=== PATIENT | male | born 1945 | race Caucasian/White ===

== ENCOUNTER 2019-04-17 07:39 | Inpatient (IN) | payer MEDICARE ==
[~2019-04-17 07:39] MED LIST: Dexamethasone TAB* 4 MG PO ONE; DiMENhydriNATE IV* 50 MG/ML VIAL IV PUSH PRN; Famotidine IV* 10 MG/ML 2 ML (20 mg) IV ONE; HYDROmorphone INJ1* 1 MG/ML SYRINGE IV PRN; Lactated Ringers 1000 ML Bag* 1,000 ML IV SCH; Naloxone* 0.4 MG/ML 1 ML VIAL IV PRN; Ondansetron ODT TAB* 4 MG PO ONE; PROCHLORPERAZINE INJ 5 MG/ML 2 ML VIAL IV PRN; Vancomycin(*) 1,750 MG in NS 0.9% 500 ML* 500 ML IVPB ONE; fentaNYL* 50 MCG/ML 2 ML VIAL (100 MCG VIAL) IV PRN; oxyCODONE TAB* 5 MG TAB PO PRN
[2019-04-17] MEDS ORDERED: KETAMINE HCL* 50 MG/ML 10 ML VIAL ONE (08:26)
[2019-04-17] MEDS ORDERED: Midazolam* 1 MG/ML 10 ML VIAL (10 MG) ONE (08:26)
[2019-04-17] MEDS ORDERED: fentaNYL* 50 MCG/ML 2 ML VIAL (100 MCG VIAL) ONE (08:26)
[2019-04-17] MEDS ORDERED: Ondansetron ODT TAB* 4 MG ONE (08:33)
[2019-04-17] MEDS ORDERED: Dexamethasone IV* 4 MG/ML 1 ML (4 MG) ONE (08:33)
[2019-04-17] MEDS ORDERED: Famotidine IV* 10 MG/ML 2 ML (20 mg) ONE (08:33)
[2019-04-17] MEDS ORDERED: Dexamethasone TAB* 4 MG ONE (08:45)
[2019-04-17] MEDS ORDERED: Buffered Lidocaine 1% SYRIN* 1 ML/SYRINGE INTRADERM ONE (09:13)
[2019-04-17] MEDS ORDERED: Ketorolac INJ* 30 MG/ML 1 ML VIAL ONE (12:05)
[2019-04-17] MEDS ORDERED: Lidocaine 2% PF * 5 ML VIAL ONE (12:05)
[2019-04-17] MEDS ORDERED: Bupivacaine 0.5% SDV PF* 30ML VIAL ONE (12:05)
[2019-04-17] MEDS ORDERED: Propofol* 10 MG/ML 20 ML BTL ONE ×2 (12:05→12:40)
[2019-04-17] MEDS ORDERED: Acetaminophen IV 1GM/100ML * 100 ML ONE (12:05)
[2019-04-17] MEDS ORDERED: Bupivacaine 0.5%* 50 ML MDV VIAL ONE (12:45)
[2019-04-17] MEDS ORDERED: Ondansetron ODT TAB* 4 MG PO PRN (13:31)
[2019-04-17] MEDS ORDERED: diPHENhydraMINE IV* 50 MG/ML 1 ml VIAL (BENADRYL) IV PRN (13:31)
[2019-04-17] MEDS ORDERED: diPHENhydraMINE PO* 25 MG PO PRN (13:31)
[2019-04-17] MEDS ORDERED: Ondansetron INJ* 2 MG/ML VIAL IV PRN (13:31)
[2019-04-17] MEDS ORDERED: oxyCODONE TAB* 5 MG TAB PO PRN (13:31)
[2019-04-17] MEDS ORDERED: Cyclobenzaprine TAB* 10 MG PO PRN (13:31)
[2019-04-17] MEDS ORDERED: Magnesium Hydroxide LIQ* 30 ML UDC PO PRN (13:31)
[2019-04-17] MEDS ORDERED: Morphine INJ* 2 MG/ML 1 ML SYRINGE (TWO MG - NEW SYRINGE VERSION) IV PRN (13:37)
[2019-04-17] MEDS ORDERED: Temazepam CAP* 15 MG PO PRN (13:37)
--- NOTE | 2019-04-17 13:54 | OP ---
Operative Report - Blank - Operative Report Date of Operation: 04/17/19 Note: PATIENT: Isaias Mary DATE OF : 1945 DATE OF SURGERY: 04/17/2019 SURGEON: Moiz Fenton MD CHANGE DIRECTOR: ZION Orozco, whos assistance was necessary for positioning, retraction, help with instrumentation, and closure. ANESTHESIOLOGIST: Dr. 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 INDICATIONS FOR PROCEDURE: Isaias has right ankle and hindfoot pain. He has developed valgus ankle arthritis in the setting of posterior tibial tendon dysfunction. His main pain generator appeared to be his ankle joint so we elected to address this, although we did discuss addressing the hindfoot as well. Both operative and non-operative treatment alternatives were reviewed. Further, the nature and risks of surgery were reviewed in careful detail. Our discussions regarding the risks of surgery included, but were not limited to, infection, wound problems, nerve injury, neuroma, RSD, persistent symptoms, blood clot, nonunion, malunion, adjacent joint arthritis, need for further surgery, failure of the surgery, and even the remote chance of catastrophic complication. DESCRIPTION OF PROCEDURE: The patient was seen in the preoperative holding unit and informed written consent was obtained. The appropriate extremity was marked. The patient was then brought to the operating room and carefully positioned on the operating room table. Anesthesia was induced. All bony prominences were padded with great care. A well-padded thigh tourniquet was placed. A chlorhexidine based pre- scrub was performed followed by a chloraprep prep and drape in standard sterile fashion. A surgical safety pause was then conducted in which we confirmed the appropriate patient, extremity, planned procedure, availability of equipment, indication and administration of prophylactic antibiotics, and DVT prophylaxis in the form of a compression boot on the non-surgical extremity. I began with an Esmarch exsanguination of the limb and inflated the tourniquet. An anterior approach was used to gain access to the ankle joint. This was between the tibialis anterior and the extensor hallucis longus tendon. Great care was taken to protect the neurovascular bundle. After this had been done, the joint capsule was opened and the periosteum was taken with it. There was advanced degenerative change of the joint laterally. Osteophytes were excised. Laminar spreaders were placed in the joint and a combination of a scalpel and curettes were used to remove any remaining cartilage from the joint surfaces. I then prepared the tibial plafond and talar dome for fusion. This was performed with a kasia and osteotomes. The joint was then thoroughly irrigated to remove any remaining debris. I then turned my attention to the lateral tibial plateau. An incision was made over Gerdy's tubercle and I carefully dissected down to the lateral aspect of the proximal tibia. I then windowed the cortex of the tibia and used a curette to extract cancellous bone graft. Demineralized bone matrix was packed into the posterior aspect of the ankle joint. The autograft was then packed into the ankle joint fusion site. The ankle was then placed in a neutral position and 2 guidewires for 6.7 mm screws were advanced from the medial metaphysis across the joint line into the the talus. This was imaged to ensure satisfactory positioning. Two 6.7 mm partially threaded screws were then advanced from over the first pin and achieved excellent purchase and compression of the joint. An anterior fusion plate from the Arthrex system was then placed in position and held using a wire. This was imaged for position. Locking screws were placed through the distal plate into the talus. A compression screw was then placed in the oblong hole of the fusion plate and further compression was obtained. Two more nonlocking screws are placed proximally and one locking screw. Fluoroscopy was used throughout the case to assist in reduction and placement of the hardware. At the end of the case, final fluoroscopic images were obtained. The wounds were copiously irrigated and meticulously closed in layers utilizing 3-0 Monocryl and 3-0 nylon for the skin. A sterile dressing was then applied followed by a well-padded splint. The patient was then awakened from anesthesia and transferred to the recovery room in stable condition. There were no complications. All needle and sponge counts were correct at the end of the case. ATTESTATION: I attest I was present and scrubbed and performed the critical portions of the procedure myself. POSTOPERATIVE PLAN: The plan is for nonweightbearing for anticipated duration of 8 weeks. Follow-up will be in 2 weeks for likely suture removal, x-rays, and transition to a short-leg nonweightbearing cast. We will use aspirin for DVT prophylaxis.
[2019-04-17] MEDS: Lactated Ringers 1000 ML Bag* 1,000 ML IV SCH (15:00)
[2019-04-17] MEDS: Atorvastatin* 10 MG TAB PO SCH (17:11)
[2019-04-17] MEDS: Aspirin TAB* 325 MG PO SCH (17:11)
[2019-04-17] MEDS ORDERED: Ketorolac INJ* 30 MG/ML 1 ML VIAL IV PRN (18:30)
[2019-04-17] MEDS ORDERED: Vancomycin(*) 1,000 MG in NS 0.9% 250 ML* 250 ML IVPB ONE (20:00)
[2019-04-17] MEDS: Magnesium Hydroxide LIQ* 30 ML UDC PO SCH (21:48)
[2019-04-17] MEDS: Docusate CAP* 100 MG PO SCH (21:48)
[2019-04-17] MEDS: Acetaminophen TAB* 325 MG PO SCH (21:48)
[2019-04-18] MEDS: Lactated Ringers 1000 ML Bag* 1,000 ML IV SCH (04:22)
[2019-04-18 05:10] LABS: Hematocrit 37 % (42-52); Hemoglobin 12.9 g/dL (14.0-18.0); Platelet Count 180 10^3/uL (150-450)
[2019-04-18 05:31] LABS: BUN/Creatinine Ratio 20.4 (8-20); Calcium 8.8 mg/dL (8.6-10.3); EGFR African American 85.9 (>60); Potassium 4.3 mmol/L (3.5-5.0)
[2019-04-18] MEDS: Acetaminophen TAB* 325 MG PO SCH ×3 (06:20→21:49)
[2019-04-18] MEDS: Levothyroxine TAB* 50 MCG TAB PO SCH (06:20)
[2019-04-18] MEDS ORDERED: Vancomycin(*) 1,000 MG in NS 0.9% 250 ML* 250 ML IV ONE (08:00)
[2019-04-18] MEDS: Vitamin THERAPEUTIC TAB PO SCH (08:55)
[2019-04-18] MEDS: Magnesium Hydroxide LIQ* 30 ML UDC PO SCH ×2 (08:56→21:48)
[2019-04-18] MEDS: Docusate CAP* 100 MG PO SCH ×2 (08:56→21:51)
[2019-04-18] MEDS: Aspirin TAB* 325 MG PO SCH (08:56)
--- NOTE | 2019-04-18 11:05 | PN ---
Progress Note - Progress Note Date of Service: 04/18/19 SOAP: Subjective: [Pt was seen in bed this am. States that he is doing well. . He states that he is starting to feel pain in the lateral portion of the ankle this morning as maybe the block is starting to wear off. The pt denies any chest pain, SOB, nausea or vomiting. ] Objective: [General: pt is alert and oriented x3. NAD MSK, RLE: dressing is c/d/i. Splint in place. Toes exposed. He states that he continues to feel numbness of the toes from the block yesterday. He has 2+ Cap refill in all toes. 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
[2019-04-18] MEDS: oxyCODONE TAB* 5 MG TAB PO PRN ×2 (11:35→19:19)
[2019-04-18] MEDS: Atorvastatin* 10 MG TAB PO SCH (16:26)
[2019-04-19] MEDS: oxyCODONE TAB* 5 MG TAB PO PRN ×3 (03:48→18:29)
[2019-04-19] MEDS: Levothyroxine TAB* 50 MCG TAB PO SCH (06:07)
[2019-04-19] MEDS: Acetaminophen TAB* 325 MG PO SCH ×3 (06:07→22:53)
[2019-04-19 07:10] LABS: Hematocrit 35 % (42-52); Hemoglobin 12.1 g/dL (14.0-18.0); Platelet Count 165 10^3/uL (150-450)
--- NOTE | 2019-04-19 08:35 | PN ---
Progress Note - Progress Note Date of Service: 04/19/19 SOAP: Subjective: Pt is doing well. pain is controlled. Denies F/C, CP/SOB or calf pain. Objective: PE- 73 y/o WDWN M NAD RLE- spilt c/d/i, knee NT, able to f/e toes, SILT distally, brisk cap refill Vital Signs Temp Pulse Resp BP Pulse Ox 98.8 F 67 16 131/81 98 04/19/19 07:44 04/19/19 07:44 04/19/19 07:44 04/19/19 07:44 04/19/19 07:44 Laboratory Results - last 24 hr 04/19/19 06:24 Hgb 12.1 L Hct 35 L Plt Count 165 MPV 7.0 L Assessment: [POD 2 Right ankle arthrodesis with tibial bone graft Plan: [- NWB - ASA 325 for DVT prophylaxis - remain in splint - pain medication as needed - awaiting rehab placement.
[2019-04-19] MEDS: Docusate CAP* 100 MG PO SCH ×2 (09:33→22:28)
[2019-04-19] MEDS: Magnesium Hydroxide LIQ* 30 ML UDC PO SCH ×2 (09:33→22:28)
[2019-04-19] MEDS: Aspirin TAB* 325 MG PO SCH (09:33)
[2019-04-19] MEDS: Vitamin THERAPEUTIC TAB PO SCH (09:34)
[2019-04-19] MEDS ORDERED: Bisacodyl SUPP* 10 MG SUPP PR PRN (13:31)
[2019-04-19] MEDS: Atorvastatin* 10 MG TAB PO SCH (18:24)
[2019-04-20 05:11] LABS: Hematocrit 37 % (42-52); Hemoglobin 12.9 g/dL (14.0-18.0); Mean Platelet Volume 6.8 fL (7.4-10.4); Platelet Count 163 10^3/uL (150-450)
[2019-04-20] MEDS: Acetaminophen TAB* 325 MG PO SCH ×3 (05:52→21:26)
[2019-04-20] MEDS: Levothyroxine TAB* 50 MCG TAB PO SCH (05:52)
[2019-04-20] MEDS: Magnesium Hydroxide LIQ* 30 ML UDC PO SCH ×2 (08:38→21:16)
[2019-04-20] MEDS: Docusate CAP* 100 MG PO SCH ×2 (08:38→21:30)
[2019-04-20] MEDS: Aspirin TAB* 325 MG PO SCH (08:40)
[2019-04-20] MEDS: Vitamin THERAPEUTIC TAB PO SCH (08:40)
--- NOTE | 2019-04-20 10:03 | PN ---
Progress Note - Progress Note Date of Service: 04/20/19 SOAP: Subjective: Pt is doing well. Pain is controlled. Denies N/T, F/C, Cp/SOB or calf pain Objective: PE- 73 y/o WDWN M NAD RLE- splint c/d/i, knee NT, able to F/E toes, brisk cap refill Vital Signs Temp Pulse Resp BP Pulse Ox 97.7 F 78 18 154/90 96 04/20/19 07:33 04/20/19 07:33 04/20/19 08:00 04/20/19 07:33 04/20/19 08:00 Laboratory Results - last 24 hr 04/20/19 04:59 Hgb 12.9 L Hct 37 L Plt Count 163 MPV 6.8 L Assessment: [POD 2 Right ankle arthrodesis with tibial bone graft Plan: [- NWB - ASA 325 for DVT prophylaxis - remain in splint - pain medication as needed - awaiting rehab placement Plan DC to [facility] vs SNF tomorrow
[2019-04-20 11:18] LABS: ABS Eosinophils 0.5 10^3/ul (0-0.6); ABS Lymphocytes 1.2 10^3/ul (1.0-4.8); ABS Monocytes 0.9 10^3/ul (0-0.8); ABS Neutrophils 4.2 10^3/ul (1.5-7.7); Eosinophil % 7.4 %; Hematocrit 37 % (42-52); Hemoglobin 12.9 g/dL (14.0-18.0); Lymphocyte % 17.5 %; Mean Corpuscular HGB Conc 35 g/dL (31-36); Mean Corpuscular Hemoglobin 32 pg (27-31); Mean Corpuscular Volume 92 fL (80-94); Mean Platelet Volume 6.6 fL (7.4-10.4); Platelet Count 173 10^3/uL (150-450); Red Blood Count 4.01 10^6 /uL (4.18-5.48); Red Cell Distribution Width 14 % (10-15); White Blood Count 6.9 10^3/uL (3.5-10.8)
[2019-04-20 11:33] LABS: BUN/Creatinine Ratio 14.1 (8-20); Calcium 8.8 mg/dL (8.6-10.3); EGFR African American 89.9 (>60); EGFR Non-African American 74.3 (>60); Potassium 4.1 mmol/L (3.5-5.0)
[2019-04-20] MEDS: Atorvastatin* 10 MG TAB PO SCH (17:16)
[2019-04-20] MEDS: oxyCODONE TAB* 5 MG TAB PO PRN (19:27)
[2019-04-21 05:21] LABS: Hematocrit 38 % (42-52); Hemoglobin 13.1 g/dL (14.0-18.0); Mean Platelet Volume 6.7 fL (7.4-10.4); Platelet Count 184 10^3/uL (150-450)
[2019-04-21] MEDS: Levothyroxine TAB* 50 MCG TAB PO SCH (05:26)
[2019-04-21] MEDS: Acetaminophen TAB* 325 MG PO SCH (05:27)
[2019-04-21] MEDS: Aspirin TAB* 325 MG PO SCH (08:06)
[2019-04-21] MEDS: Vitamin THERAPEUTIC TAB PO SCH (08:06)
[2019-04-21] MEDS: Docusate CAP* 100 MG PO SCH (08:07)
--- NOTE | 2019-04-21 11:16 | DS ---
Orthopedic Discharge Summary - Discharge Summary Date of Admission:04/18/19 Date of Discharge: 04/21/2019 Date of Surgery: 04/18/2019 Attending Orthopedic Provider: Dr. 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 Patient has failed conservative management and has elected to undergo a right ankle arthrodesis with tibial bone graft. Hospital Course: ZAN was admitted to [facility] on 04/18/19. Patient underwent a right ankle arthrodesis with tibial bone graft without complication followed by a brief recovery in PACU and transfer to the Short Stay Surgical Unit in stable condition. Physical therapy and occupational therapy also participated in this patients care. Post-op day 1: patient was alert and in no acute distress. Dressing was clean, dry and intact. Splint in place. He has 2+ Cap refill in all toes.Post-op day two: Splint remained in place. POD 3 Patient was deemed to be medically and orthopedically stable for discharge. Physical therapy goals were met. Home Medications Medication Instructions Recorded Confirmed Type Levothyroxine Sodium 50 mcg PO QAM 12/04/18 04/17/19 History Atorvastatin* 10 mg PO QPM 03/31/19 04/17/19 History Nonweight bearing right lower extremity Keep splint clean dry and intact until the patients post op visit Eat a diet high in fiber with a lot of water to prevent constipation If you develop constipation ok to use colace 100 mg 1 tab every 8 hours as needed If you do not have a bowel movement in 48 hours contact the ortho office. If you develop chest pain , shortness of breath, fever more than 101.5 or increase redness of the leg go to the ER right away Aspirin 325 mg take 1 tab daily for DVT prophylaxis x 6 weeks Ok to take tylenol 500 mg 2 tabs every 8 hours as needed for pain. Do not exceed 4000mg of tylenol(acetaminophen) a day. Oxycodone 5 mg take 1 tab every 4-6 hours as needed for pain in addition to tylenol. Maximum daily dose of 6. If you have any question or concerns you can contact the ortho office and F/U with Dr. Fenton 12-14 days post op
[2019-04-21] MEDS: oxyCODONE TAB* 5 MG TAB PO PRN (13:01)
[2019-04-21 13:04] VITALS: BP 152/89
== END 2019-04-21 13:20 | DRG 494 ==
LOC: OR 07:39 → SSU 12:55 → OBSVTOIN 17:00 → INTOOBSV 04-18 12:55
PROVIDERS: ADMIT Orthopaedic Surgery; ATTEND Orthopaedic Surgery
PROC: 0SGF07Z Fusion of Right Ankle Joint with Autologous Tissue Substitute, Open Approach (ICD-10-PCS; principal; 2019-04-17 09:45)
DX: M19.071 Primary osteoarthritis, right ankle and foot (principal); E78.00 Pure hypercholesterolemia, unspecified; E89.0 Postprocedural hypothyroidism; M21.071 Valgus deformity, not elsewhere classified, right ankle; M25.771 Osteophyte, right ankle; Z96.652 Presence of left artificial knee joint; R19.7 Diarrhea, unspecified; Z82.3 Family history of stroke; Z88.1 Allergy status to other antibiotic agents; Z88.8 Allergy status to other drugs, medicaments and biological substances; Z85.828 Personal history of other malignant neoplasm of skin; Z87.890 Personal history of sex reassignment; Z87.891 Personal history of nicotine dependence; Z79.82 Long term (current) use of aspirin; Z79.899 Other long term (current) drug therapy
CPT/HCPCS: 36415; 76000; 80048; 85014; 85018; 85025; 85049; 87493; A9270-GY; C1713; C9359; G0378; J1100; J1885; J2250; J2704; J3010; J3370; J3490; J8540

== ENCOUNTER 2019-06-29 12:49 | Observation (INO) | payer MEDICARE ==
--- OUTSIDE RECORDS SUMMARY | 2019-06-29 12:55 | XMS REPORT ---
:1945 Author Organization [facility] Care Team Providers Name Role Phone Unavailable Unavailable Unavailable Problems This patient has no known problems. Allergies, Adverse Reactions, Alerts Allergy Allergy Status Severity Reaction(s) Onset Inactive Treating Comments Name Type Date Date Clinician Unknown None Active Unknown None Unknown No Known Allergies For This Patient Medications Ordered Filled Start Stop Current Ordering Indication Dosage Frequency Signature Comments Components Medication Medication Date Date Medication? Clinician (SIG) Name Name No Known No Known No None None None Medications Medications For This For This Patient Patient Procedures This patient has no known procedures. Results This patient has no known results.
--- OUTSIDE RECORDS SUMMARY | 2019-06-29 12:55 | XMS REPORT | Continuity of Care Document ---
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 Problems Active Problems Provider Date Localized, primary osteoarthritis of the ankle Moiz Fenton MD Onset: 09/16 and/or foot Localized superficial swelling of skin Moiz Fenton MD Onset: 12/06/2018 Peripheral vascular disease Mozi Fenton MD Onset: 12/06/2018 Social History Type Date Description Comments Sex Unknown ETOH Use Currently consumes every night two alcohol drinks Tobacco Use Start: Unknown End: Patient is a former Unknown smoker Recreational Drug Use Denies Drug Use Smoking Status Reviewed: 06/16/19 Patient is a former smoker Allergies, Adverse Reactions, Alerts Active Allergies Reaction Severity Comments Date Augmentin rash 09/16/2018 Celebrex rash 09/16/2018 Medications Active Medications SIG Qnty Indications Ordering Provider Date Levothyroxine Sodium 1 by mouth Unknown 50mcg every day Tablets Atorvastatin Calcium 1 by mouth Unknown 10mg every day Tablets Medications Administered in Office Medication SIG Qnty Indications Ordering Provider Date Triamcinolone (Kenalog) Moiz Fenton MD 12/24/2018 Injection Immunizations Description No Information Available Vital Signs Date Vital Result Comment 06/16/2019 1:07pm Height 75 inches 6'3" Weight 265.00 lb Heart Rate 58 /min BP Systolic 140 mmHg BP Diastolic 70 mmHg Respiratory Rate 18 /min Pain Level 0 BMI (Body Mass Index) 33.1 kg/m2 05/26/2019 2:28pm Height 75 inches 6'3" Weight 265.00 lb Heart Rate 70 /min BP Systolic 130 mmHg BP Diastolic 80 mmHg Body Temperature 97.7 F BMI (Body Mass Index) 33.1 kg/m2 Results Description No Information Available Procedures Date Code Description Status 05/26/2019 08511 Short Leg Cast Completed 05/02/2019 63082 Short Leg Cast Completed 04/17/2019 74183 Arthrodesis Ankle,open Completed 04/17/2019 50113 Arthrodesis Ankle,open Completed 04/17/2019 80010 Bone Graft, Any Donor Area Major Or Large Completed 04/17/2019 26575 Bone Graft, Any Donor Area Major Or Large Completed Medical Devices Description No Information Available Encounters Type Date Location Provider Dx Diagnosis Office Visit 01/31/2019 [facility] Moiz Fenton, M19.071 Primary 9:45a at [place] osteoarthritis, right ankle and foot M76.821 Posterior tibial tendinitis, right leg Office Visit 01/08/2019 9:30a [facility] R22.41 [facility] Lombardo M.D. swelling, mass and lump, right lower limb R22.42 Localized swelling, mass and lump, left lower limb Assessments Date Code Description Provider 06/16/2019 M19.071 Primary osteoarthritis, right ankle and foot Moiz Fenton MD 06/16/2019 M76.821 Posterior tibial tendinitis, right leg Moiz Fenton MD 05/26/2019 M19.071 Primary osteoarthritis, right ankle and foot Moiz Fenton MD 05/02/2019 M19.071 Primary osteoarthritis, right ankle and foot Moiz Fenton MD 04/17/2019 M19.071 Primary osteoarthritis, right ankle and foot LORIE Orozco 04/17/2019 M19.071 Primary osteoarthritis, right ankle and foot Moiz Fenton MD 03/31/2019 M19.071 Primary osteoarthritis, right ankle and foot Moiz Fenton MD 03/31/2019 M76.821 Posterior tibial tendinitis, right leg Moiz Fenton MD 01/31/2019 M19.071 Primary osteoarthritis, right ankle and foot Moiz Fenton MD 01/31/2019 M76.821 Posterior tibial tendinitis, right leg Moiz Fenton MD 01/08/2019 R22.41 Localized swelling, mass and lump, right [facility] Lombardo M.D. lower limb 01/08/2019 R22.42 Localized swelling, mass and lump, left [facility] Lombardo M.D. lower limb Plan of Treatment Future Appointment(s):07/18/2019 1:00 pm - Moiz Fenton MD at [facility] at [id number]/16/2019 - Moiz Fenton, MDM19.071 Primary osteoarthritis, right ankle and footNew Xrays:Ankle Right 3+VWS, Ordered: Follow up:Follow Up: 1 lltpsC21.821 Posterior tibial tendinitis, right leg Functional Status Description No Information Available Mental Status Description No Information Available Referrals Description No Information Available
--- OUTSIDE RECORDS SUMMARY | 2019-06-29 12:55 | XMS REPORT ---
:1945 Author Organization [facility] Care Team Providers Name Role Phone Unavailable [...]
--- OUTSIDE RECORDS SUMMARY | 2019-06-29 12:55 | XMS REPORT ---
:1945 Author Organization [facility] Care Team Providers Name Role Phone Unavailable [...]
--- OUTSIDE RECORDS SUMMARY | 2019-06-29 12:55 | XMS REPORT ---
:1945 Author Organization [facility] Care Team Providers Name Role Phone Unavailable [...]
--- OUTSIDE RECORDS SUMMARY | 2019-06-29 12:55 | XMS REPORT ---
:1945 Author Organization [facility] Care Team Providers Name Role Phone Unavailable [...]
--- OUTSIDE RECORDS SUMMARY | 2019-06-29 12:55 | XMS REPORT ---
:1945 Author Organization [facility] Care Team Providers Name Role Phone Unavailable [...]
--- OUTSIDE RECORDS SUMMARY | 2019-06-29 12:55 | XMS REPORT ---
:1945 Author Organization [facility] Care Team Providers Name Role Phone Unavailable [...]
--- OUTSIDE RECORDS SUMMARY | 2019-06-29 12:56 | XMS REPORT ---
:1945 Author Organization [facility] Care Team Providers Name Role Phone Unavailable [...]
--- OUTSIDE RECORDS SUMMARY | 2019-06-29 12:56 | XMS REPORT ---
:1945 Author Organization [facility] Care Team Providers Name Role Phone Unavailable [...]
--- OUTSIDE RECORDS SUMMARY | 2019-06-29 12:56 | XMS REPORT ---
:1945 Author Organization [facility] Care Team Providers Name Role Phone Unavailable [...]
--- OUTSIDE RECORDS SUMMARY | 2019-06-29 12:56 | XMS REPORT ---
:1945 Author Organization [facility] Care Team Providers Name Role Phone Unavailable [...]
--- OUTSIDE RECORDS SUMMARY | 2019-06-29 12:56 | XMS REPORT ---
:1945 Author Organization [facility] Care Team Providers Name Role Phone Unavailable [...]
--- OUTSIDE RECORDS SUMMARY | 2019-06-29 12:56 | XMS REPORT ---
:1945 Author Organization [facility] Care Team Providers Name Role Phone Unavailable [...]
--- OUTSIDE RECORDS SUMMARY | 2019-06-29 12:56 | XMS REPORT ---
:1945 Author Organization [facility] Care Team Providers Name Role Phone Unavailable [...]
--- OUTSIDE RECORDS SUMMARY | 2019-06-29 12:56 | XMS REPORT ---
:1945 Author Organization [facility] Care Team Providers Name Role Phone Unavailable [...]
--- OUTSIDE RECORDS SUMMARY | 2019-06-29 12:56 | XMS REPORT ---
:1945 Author Organization [facility] Care Team Providers Name Role Phone [...]
--- OUTSIDE RECORDS SUMMARY | 2019-06-29 12:56 | XMS REPORT | Continuity of Care Document ---
:1945 External Reference #:[id number] Author Name Moiz Fenton MD (transmitted by agent of provider Samantha Holbrook) Address [address] [place] [address] Care Team Providers Name Role Phone Ivone Bustamante, CATHODE [employer] TUBE ASSEMBLER - Family Care Team Information Stonemason Problems Active Problems Provider Date Localized, primary osteoarthritis of the ankle Moiz Fenton MD Onset: 09/16 and/or foot Localized superficial swelling of skin Moiz Fenton MD Onset: 12/06/2018 Peripheral vascular disease Moiz Fenton MD Onset: 12/06/2018 Social History Type [...] Available Procedures Date Code Description Status 05/26/2019 07794 Short Leg Cast Completed 05/02/2019 35680 Short Leg Cast Completed 04/17/2019 60132 Arthrodesis Ankle,open Completed 04/17/2019 46317 Arthrodesis Ankle,open Completed 04/17/2019 24359 Bone Graft, Any Donor Area Major Or Large Completed 04/17/2019 79351 Bone Graft, Any Donor Area Major Or Large Completed 12/24/2018 71764 Inj/Aspir, Intermediate Joint/Bursa W/ US Completed Medical Devices Description No Information Available Encounters Type Date Location Provider Dx Diagnosis Office Visit 01/31/2019 [facility] Moiz Fenton, M19.071 Primary 9:45a at [place] osteoarthritis, right ankle and foot M76.821 Posterior tibial tendinitis, right leg Office Visit 01/08/2019 9:30a [facility] R22.41 [facility] M.D. swelling, mass and lump, right lower limb R22.42 Localized swelling, mass and lump, left lower limb Office Visit 12/24/2018 [facility] M19.071 Primary 10:15a [facility] [place] right ankle and foot M76.821 Posterior tibial tendinitis, right leg I73.9 Peripheral vascular disease, unspecified Assessments Date Code Description Provider 06/16/2019 M19.071 [...] lump, left [facility] Lombardo M.D. lower limb 12/24/2018 M19.071 Primary osteoarthritis, right ankle and foot Moiz Fenton MD 12/24/2018 M76.821 Posterior tibial tendinitis, right leg Moiz Fenton MD 12/24/2018 I73.9 Peripheral vascular disease, unspecified Moiz Fenton MD Plan of Treatment Future Appointment(s):07/18/2019 1:00 pm - Moiz Fenton MD at [facility] at [id number]/16/2019 - Moiz Fenton, MDM19.071 Primary osteoarthritis, right ankle and footNew Xrays:Ankle Right 3+VWS, Ordered: Follow up:Follow Up: 1 dtribV10.821 Posterior tibial tendinitis, right leg Functional Status Description No Information Available Mental Status Description No Information Available Referrals Refer to Dr Reason for Referral Status Appt Date [facility] Lombardo MD [facility] Closed 01/08/[address] [place] [phone]
--- OUTSIDE RECORDS SUMMARY | 2019-06-29 12:56 | XMS REPORT ---
:1945 Author Organization [facility] Care Team Providers Name Role Phone Unavailable [...]
--- NOTE | 2019-06-29 13:15 | ED ---
HPI Cardiac - HPI Summary HPI Summary: This patient is a 73 year old male presenting to [facility] with a chief complaint of bradycardia. Patient was following with his Oncologist at [facility] for an orapharangeal cancer in remission when the Oncologist noted he was bradycardic. He states he has had some loss of balance in recent weeks secondary to dizziness and had a fall two weeks ago without hitting his head or LOC. Reports feeling fatigued. No CP. He states a Hx of hypothyroidism. He denies chest pain. - History of Current Complaint Chief Complaint: EDDizziness Stated Complaint: LOW HEART RATE PER Time Seen by Provider: 06/29/19 12:51 Hx Obtained From: Patient Pain Intensity: 0 - Additional Pertinent History Primary Care Physician: KRISTEN - Allergy/Home Medications Allergies/Adverse Reactions: Allergies Allergy/AdvReac Type Severity Reaction Status Date / Time amoxicillin [From Augmentin] Allergy Rash Verified 04/17/19 08:06 celecoxib [From Celebrex] Allergy Rash Verified 04/17/19 15:19 clavulanic acid Allergy Rash Verified 04/17/19 08:06 [From Augmentin] Home Medications: Home Medications Levothyroxine Sodium 50 mcg PO QAM 12/04/18 [History Confirmed 04/17/19] Atorvastatin* 10 mg PO QPM 03/31/19 [History Confirmed 04/17/19] PMH/Surg Hx/FS Hx/Imm Hx Endocrine/Hematology History: Reports: Hx Thyroid Disease - HYPO-ON LEVOTHYROXINE Denies: Hx Bone Marrow Disease, Hx Diabetes, Hx Sickle Cell Disease, Hx Anemia Cardiovascular History: Reports: Other Cardiovascular Problems/Disorders - HLD- ON ATORVASTATIN Denies: Hx Angina, Hx Cardiomegaly, Hx Congestive Heart Failure, Hx Coronary Artery Disease, Hx Hypertension, Hx Pacemaker/ICD, Hx Peripheral Vascular Disease, Hx Rheumatic Fever, Hx Valvular Heart Disease Respiratory History: Denies: Hx Asthma, Hx Pulmonary Edema, Hx Pulmonary Embolism, Hx Sleep Apnea , Other Respiratory Problems/Disorders GI History: Denies: Hx Cirrhosis, Hx Crohn's Disease, Hx Gastroesophageal Reflux Disease , Hx Hiatal Hernia, Hx Irritable Bowel, Hx Jaundice, Hx Ulcer, Other GI Disorders History: Reports: Hx Kidney Stones - 1 EPISODE 10 YRS AGO Denies: Hx Kidney Infection, Other Problems/Disorders Musculoskeletal History: Reports: Hx Arthritis - KNEES AND ANKLES, Other Musculoskeletal History - RIGHT ANKLE FUSION 04/17/2019 SCHEDULED Denies: Hx Bursitis, Hx Tendonitis Sensory History: Reports: Hx Contacts or Glasses - GLASSES Denies: Hx Cataracts, Hx Glaucoma, Hx Hearing Aid Opthamlomology History: Reports: Hx Contacts or Glasses - GLASSES Denies: Hx Cataracts, Hx Glaucoma Neurological History: Denies: Hx Headaches, Hx Migraine, Hx Nerve Disease, Hx Seizures, Other Neuro Impairments/Disorders Psychiatric History: Denies: Hx Anxiety, Hx Depression - Cancer History Hx Chemotherapy: No - Surgical History Surgery Procedure, Year, and Place: Rt ankle surgery. ORAL CANCER SURGERY- MANDIBLEECTOMY,MOUTH RESECTION LOWER JAW, FIBULA FREE FLAP,NECK RESECTION, TRACHEOTOMY@ [facility]. THYROIDECTOMY-04/17. LEFT KNEE TKR 2004 -[facility]. APPENDECTOMY-[facility] [place]. TONSILLECTOMY Hx Anesthesia Reactions: No Infectious Disease History: No Infectious Disease History: Denies: Hx Hepatitis, Traveled Outside the in Last 30 Days - Family History Known Family History: Negative: Seizure Disorder - Social History Alcohol Use: Daily Alcohol Amount: BEER OR GIN AND TONIC Hx Substance Use: No Substance Use Type: Reports: None Hx Tobacco Use: No Smoking Status (MU): Former Smoker Type: Cigarettes Amount Used/How Often: 1/2 PPD X 50 YRS Review of Systems Positive: Other - Loss of balance Positive: Other - Bradycardia. Negative: Chest Pain Negative: Syncope All Other Systems Reviewed And Are Negative: Yes Physical Exam - Summary Physical Exam Summary: Constitutional: Well-developed, Well-nourished, Alert. (-) Distressed Skin: Warm, Dry HENT: Normocephalic; Atraumatic Eyes: Conjunctiva normal Neck: Musculoskeletal ROM normal neck. (-) JVD, (-) Stridor, (-) Nuchal rigidity Cardio: Rhythm regular, rate bradycardic, Heart sounds normal; Intact distal pulses; Radial pulses are 2+ and symmetric. (-) Murmur Pulmonary/Chest wall: Effort normal. (-) Respiratory distress, (-) Wheezes, (-) Rales Abd: Soft, (-) tenderness, (-) Distension, (-) Guarding, (-) Rebound Musculoskeletal: (-) Edema Lymph: (-) Cervical adenopathy Neuro: Alert, Oriented x3, CN 2-12 grossly intact. Strength 5/5 UE/LE. No dysmetria. Psych: Mood and affect Normal Triage Information Reviewed: Yes Vital Signs On Initial Exam: Initial Vitals Temp Pulse Resp BP Pulse Ox 98.5 F 39 24 174/89 98 06/29/19 12:58 06/29/19 12:58 06/29/19 12:58 06/29/19 12:58 06/29/19 12:58 Vital Signs Reviewed: Yes Procedures - Sedation Patient Received Moderate/Deep Sedation with Procedure: No Diagnostics - Vital Signs Vital Signs Temp Pulse Resp BP Pulse Ox 06/29/19 12:58 98.5 F 39 24 174/89 98 - Laboratory Result Diagrams: 06/29/19 13:20 06/29/19 13:20 Lab Statement: Any lab studies that have been ordered have been reviewed, and results considered in the medical decision making process. - CT Brain CT Interpretation Completed By: Radiologist Summary of CT Findings: Normal CT of the brain. ED Provider has reviewed this report. - EKG 1311 EKG Rhythm: Sinus Rhythm - 81 BPM Summary of EKG Findings: Ventricular bigeminy. ED Physician has reviewed and interpreted this EKG. Disposition - Course Course Of Treatment: 73 y/o male w hx oropharyngeal cancer in remission, hypothyroidism presenting with bradycardia, lightheadedness. - Physical exam notable for heart rate in the high 30's/low 40's, ventricular bigeminy and EKG. Labs w magnesium 1.8, repleted. TSH and T4 normal. Head CT obtained in setting of intermittent vertigo/abnormal gait. Discussed with cardiology who recommends telemetry monitoring and echo. - Diagnoses Provider Diagnoses: Ventricular bigeminy, Bradycardia, Dizziness - Physician Notifications Discussed Care Of Patient With: Kisha Pathak - Cardiology Time Discussed With Above Provider: 13:52 - Admit observation and do ECHO. Instructed by Provider To: Admit As Observation Discharge ED - Sign-Out/Discharge Documenting (check all that apply): Patient Departure - Admission, accepted by Dr. Bueno, hospitalist. - Discharge Plan Condition: Stable Disposition: ADMITTED TO [facility] Referrals: Dianna LIRA,Marie Juarez [Primary Care Provider] - - Billing Disposition and Condition Condition: STABLE Disposition: Admitted to [facility] - Attestation Statements Document Initiated by Scribe: Yes Documenting Scribe: Fransico Fatima Provider For Whom Giovanni is Documenting (Include Credential): Rochelle Pablo MD Scribe Attestation: I, Fransico Fatima, scribed for Rochelle Pablo MD on 06/29/19 at 1500. Scribe Documentation Reviewed: Yes Provider Attestation: The documentation as recorded by the joséibFransico curry accurately reflects the service I personally performed and the decisions made by me, Rochelle Pablo MD Status of Scribe Document: Viewed
[2019-06-29 13:38] LABS: ABS Eosinophils 0.8 10^3/ul (0-0.6); ABS Lymphocytes 1.7 10^3/ul (1.0-4.8); ABS Monocytes 0.7 10^3/ul (0-0.8); Eosinophil % 12.7 %; Hematocrit 39 % (42-52); Hemoglobin 13.9 g/dL (14.0-18.0); Mean Corpuscular HGB Conc 35 g/dL (31-36); Mean Corpuscular Hemoglobin 32 pg (27-31); Mean Corpuscular Volume 91 fL (80-94); Mean Platelet Volume 6.8 fL (7.4-10.4); Platelet Count 192 10^3/uL (150-450); Red Blood Count 4.32 10^6 /uL (4.18-5.48); Red Cell Distribution Width 15 % (10-15); White Blood Count 6.2 10^3/uL (3.5-10.8)
[2019-06-29 13:50] LABS: Albumin 4.1 g/dL (3.2-5.2); Albumin/Globulin Ratio 1.6 (1-3); BUN/Creatinine Ratio 18.8 (8-20); Calcium 9.4 mg/dL (8.6-10.3); EGFR African American 74.1 (>60); EGFR Non-African American 61.3 (>60); Globulin 2.6 g/dL (2-4); Magnesium 1.8 mg/dL (1.9-2.7); Potassium 4.4 mmol/L (3.5-5.0); Total Bilirubin 1.2 mg/dL (0.2-1.0); Total Protein 6.7 g/dL (6.4-8.9)
[2019-06-29 13:52] LABS: Troponin I 0.01 ng/mL (<0.03)
[2019-06-29] MEDS ORDERED: Magnesium Sulfate 2 GM IV* 2 GM/50 ML BAG IVPB ONE (13:52)
[2019-06-29 14:06] LABS: TSH (Thyroid Stimulating Horm) 2.74 mcIU/mL (0.34-5.60)
[2019-06-29 14:08] LABS: Free T4 0.98 ng/dL (0.61-1.12)
--- NOTE | 2019-06-29 17:04 | HP ---
CC: Marie Bustamante NP * [facility] MEDICINE HISTORY AND PHYSICAL: DATE OF ADMISSION: 06/29/19 PRIMARY CARE PROVIDER: Marie Bustamante NP. ATTENDING PHYSICIAN: Dr. Fransico Bueno * (dictation provided by Nishi Odonnell NP ). CHIEF COMPLAINT: Lightheadedness and slow heart rate. HISTORY OF PRESENT ILLNESS: Mr. Mary is a 73-year-old male with past medical history of squamous cell carcinoma of the neck, hypothyroidism with partial thyroidectomy, hyperlipidemia, and arthritis, who presents today to the hospital with concern for lightheadedness and finding of slow heart rate at his oncology office. Mr. Mary states that he has been in his normal state of health. He did have an ankle surgery on 04/21/[address] Fenton and has been recovering from that slowly. He states that he is still getting around mostly in a wheelchair. He was at his oncology office yesterday for a routine followup when it was noted that his heart rate was slow and in the 30s. The patient initially stated that he had no symptoms from this and was sent home. His was checking his heart rate at home and continued to note that it was in the 30s. On reflection, he recalled that he had had some episodes of feeling lightheaded. Again, he states he is getting around in a wheelchair and when he stands he will feel lightheaded very mildly for a few seconds. There was an episode a couple of weeks ago where he "tipped backwards" back into his wheelchair, but did not fall, he did not lose consciousness. He has no palpitations, no chest pain, no shortness of breath. He states that he has been eating and drinking normally, has no nausea, vomiting, diarrhea, abdominal pain. In the emergency room, he had labs, which showed he has no leukocytosis. He has potassium of 4.4. His magnesium is 1.8 and this has been repleted in the ED. His TSH is 2.74. His EKG showed a ventricular bigeminy with a heart rate about 60, though it is being read as about 30. During my assessment with him, his rhythm was ranging from a normal sinus rhythm to bigeminy to frequent PVCs. While lying in bed, he was asymptomatic. PAST MEDICAL HISTORY: 1. Head and neck cancer. 2. Hypothyroidism, status post partial thyroidectomy. 3. Hyperlipidemia. 4. Arthritis. MEDICATIONS OUTPATIENT: 1. Atorvastatin 10 mg p.o. daily. 2. Levothyroxine 50 mcg p.o. q.a.m. 3. Aspirin 81 mg p.o. daily. FAMILY HISTORY: His mother related to heart disease. Father related to stroke. SOCIAL HISTORY: The patient lives with his , who is at the bedside. There is no report of alcohol, tobacco, or drug use currently, but he is a former smoker. PHYSICAL EXAMINATION GENERAL: Mr. Mary is sitting up in the bed, in no acute distress, with his at the bedside. VITAL SIGNS: Temperature 98.5, pulse rate 39 with bigeminy, respiratory rate 24 , O2 saturation 98% on room air, blood pressure 174/89. LUNGS: Clear to auscultation bilaterally with no accessory muscle use and good aeration. HEART: S1, S2. No murmur, rub, or gallop and irregular. ABDOMEN: Soft, nontender with bowel sounds positive x4. EXTREMITIES: No cyanosis or edema. NEURO: He is alert. He is oriented x3. He moves all extremities equally. There is no facial asymmetry or focal weakness. Extraocular movements are intact. SKIN: Intact. DIAGNOSTIC STUDIES/LAB DATA: Sodium 136, potassium 4.4, chloride 103, serum bicarbonate 27, BUN 22, creatinine 1.17, glucose 96, magnesium 1.8. TSH 2.74. WBC 6.2, hemoglobin 13.9, hematocrit 39, platelet count 192. Again, the EKG shows ventricular bigeminy. ASSESSMENT AND PLAN: Mr. Mary is a 73-year-old male with past medical history of head and neck cancer, hypothyroidism with a partial thyroidectomy, and hyperlipidemia, with recent ankle surgery, who presents to the hospital today with concern for slow heart rate which is possibly symptomatic given report of recent mild lightheadedness. Our plans are for observation in the hospital for the followin. Questionable symptomatic ventricular bigeminy. I discussed the case with Dr. Pathak and the plans will be for the patient to be monitored on telemetry and to also for a transthoracic echocardiogram to evaluate his left ventricular function. Question is whether or not possible impairment to his EF could allow his ventricular bigeminy to be symptomatic. His potassium is well repleted at 4.4 and his magnesium has been repleted in the ED. The patient has no prior echos. 2. Hyperlipidemia. Continue atorvastatin. 3. Hypothyroidism. Continue levothyroxine. His TSH is normal. 4. DVT prophylaxis with heparin subcu. 5. Code status is full code. TIME SPENT: Approximately 60 minutes was spent on the admission of this patient , more than half the time was spent with the patient at the bedside reviewing the events leading up to this hospitalization, performing the physical examination, and reviewing the plan of care. NISHI ODONNELL NP [id number]/CPS #: [id number] ROBERT
[2019-06-29] MEDS ORDERED: Atorvastatin* 10 MG TAB PO SCH (18:00)
[2019-06-29] MEDS ORDERED: Acetaminophen TAB* 325 MG PO PRN (21:29)
[2019-06-29] MEDS: Heparin VIAL(*) 5000 UNITS/ML VIAL (FIVE THOUSAND) SUBCUT SCH (21:57)
[2019-06-30 02:55] LABS: Hepatitis C Antibody Negative (Negative)
[2019-06-30] MEDS: Heparin VIAL(*) 5000 UNITS/ML VIAL (FIVE THOUSAND) SUBCUT SCH ×2 (05:25→13:34)
[2019-06-30] MEDS ORDERED: Levothyroxine TAB* 50 MCG TAB PO SCH (06:00)
[2019-06-30] MEDS ORDERED: Metoprolol Tartrate TAB* 25 MG PO SCH (10:00)
--- NOTE | 2019-06-30 11:06 | ECHO ---
*[facility]* [place] [address] Fax #: [phone] Transthoracic Echocardiogram Patient: Isaias Mary : 1945 Study Date: 06/30/2019 Age: 73 Gender: M HR: 74 bpm Height: 74 in /188 cm BSA: 2.58 m^2 Weight: 272.4 lb /123.8 kg BMI: 35.1 kg/m^2 *Remittance Clerk: Melinda Liz [facility] [place] *Referring Physician: * Nishi Odonnell *Reading Physician: * Sheng Multani MD Indications: Abnormal EKG. History: Squamous cell carcinoma of neck. Risk factors: Dyslipidemia. Conclusions Summary: - Left ventricle: Systolic function is at the lower limits of normal. The estimated ejection fraction is 45-50%. Wall motion is normal; there are no regional wall motion abnormalities. - Right ventricle: Systolic function is normal. - Mitral valve: There is trace to mild regurgitation. - Aortic valve: There is no evidence of stenosis. There is trace regurgitation. - Pulmonary arteries: Systolic pressure can not be accurately estimated. - Study data: No prior study is available for comparison. Study data: Transthoracic echocardiogram. Procedure: Transthoracic echocardiography was performed. Image quality was fair. The study was technically limited due to poor parasternal window availability. Complete 2D, spectral Doppler, and color flow Doppler. Location: Bedside. Patient status: Inpatient. Patient room number: 445. No prior study is available for comparison. Rhythm: Normal sinus rhythm with PVC's. Findings Left ventricle: The cavity size is normal. Wall thickness is mildly to moderately increased. Systolic function is at the lower limits of normal. The estimated ejection fraction is 45-50%. Wall motion is normal; there are no regional wall motion abnormalities. Left ventricular diastolic function parameters are normal for the patient's age. Right ventricle: The cavity size is normal. Wall thickness is increased. Systolic function is normal. Left atrium: The atrium is normal in size. Right atrium: The atrium is normal in size. Mitral valve: The leaflets are normal thickness. There is no evidence of stenosis. There is trace to mild regurgitation. Aortic valve: The leaflets are normal thickness. There is no evidence of stenosis. There is trace regurgitation. Tricuspid valve: The leaflets are normal thickness. There is no evidence of stenosis. Pulmonic valve: Not well visualized. There is no significant regurgitation. Aorta: Aortic root: The aortic root is mildly dilated. Ascending aorta: The ascending aorta is mildly dilated. Aortic arch: The aortic arch is appears normal. Pericardium: A prominent pericardial fat pad is present. There is no significant pericardial effusion. Pulmonary arteries: Systolic pressure can not be accurately estimated. Systemic veins: Inferior vena cava: The vessel is dilated. There is (>= 50%) respiratory change in the IVC dimension. Measurements Left ventricle Value Ref Aortic valve continued Value Ref MARCELO, LAX 4.6 cm 4.2 - 5.8 Joycelyn diam/bsa, ED 0.9 cm/m^2 ---- ESD, LAX 3.7 cm 2.5 - 4.0 Peak v, S 1.11 m/sec ---- FS, LAX (L) 20 % 25 - 43 VTI, S 25.8 cm ---- PW, ED, LAX (H) 1.5 cm 0.6 - 1.0 Mean grad, S 2.9 mm Hg ---- E', lat joycelyn, TDI (L) 6.6 cm/sec >=10.0 Peak grad, S 4.9 mm Hg ---- E/e', lat joycelyn, 7 LVOT/AV, VTI ratio 0.75 -- -- TDI Mitral valve Value Ref LVOT Value Ref Peak E 0.44 m/sec ---- Peak delores, S 0.8 m/sec Peak A 0.97 m/sec ---- VTI, S 19.4 cm Decel time 99 ms ---- Peak grad, S 3 mm Hg Peak E/A ratio 0.45 ---- Mean grad, S 1 mm Hg Pulmonic valve Value Ref Ventricular septum Value Ref Peak v, S 0.6 m/sec ---- IVS, ED (H) 1.5 cm 0.6 - 1.0 Peak grad, S 1.0 mm Hg ---- Right ventricle Value Ref Aortic root Value Ref MARCELO, LAX 2.6 cm Root diam 3.8 cm <4.6 MARCELO major ax, A4C (L) 3.7 cm 5.9 - 8.3 Ascending aorta Value Ref Left atrium Value Ref AAo AP diam, S 3.9 cm ---- AP dim, ES (H) 4.60 cm 3.00 - AAo AP diam/bsa, S 1.5 cm/m^2 ---- 4.00 ML dim, A4C 3.7 cm Aortic arch Value Ref SI dim, A4C 6.1 cm Arch diam 2.8 cm ---- Vol/bsa, ES, 2-p 20 ml/m^2 16 - 34 Decending aorta Value Ref Right atrium Value Ref Jacoby peak delores 0.7 m/sec ---- SI dim, ES 4.5 cm 3.4 - 5.3 ML dim, ES, A4C 4.1 cm 2.6 - 4.4 Inferior vena cava Value Ref Estimated RAP 8 mm Hg Diam 2.2 cm ---- Aortic valve Value Ref Joycelyn diam, ED 2.3 cm Legend: (L) and (H) eduardo values outside specified reference range. Prepared and electronically signed by Sheng Multani MD 06/30/2019 11:05
[2019-06-30 11:56] VITALS: BP 142/86
--- NOTE | 2019-06-30 12:06 | CONS ---
CONSULTATION REPORT: DATE OF CONSULT: 06/30/19 ATTENDING PHYSICIAN: Dr. Sheng Multani * (dictated by Janet Whitman NP). PRIMARY PHYSICIAN: Marie Bustamante, nurse practitioner at [facility]. PRIMARY BAND BOOKER/ONCOLOGIST: Dr. Dejesus with [facility]. REASON FOR CONSULTATION: Ventricular bigeminy. HISTORY OF PRESENT ILLNESS: This is a 73-year-old male patient with a notable history of hyperlipidemia; head and neck cancer, in remission since October 2017; atherosclerosis; hypothyroidism, who presented to [facility] on 06/28 due to reported bradycardia and lightheadedness. According to the patient, he was informed that he had a low resting heart rate in the 30s by his hematology/oncology team at their office at [facility]. He states that he has noted increased episodes of "losing his balance" since he underwent his ankle surgery in April 2019, although he denies dizziness or lightheadedness. He states that he recorded a pulse in the 30s, so he presented to [facility]. While being evaluated in the emergency department, he was noted to be in sinus rhythm with ventricular bigemini, rate 81. He was admitted to [address] [place] [address] for observation. We were asked to see the patient in consultation. He denies sensation of forceful heart beat, palpitations, or sensation of heart racing irregularity. Denies chest pain or discomfort. Denies lightheadedness or dizziness or shortness of breath. Does report he has been noticing increased loss of balance since he under ankle surgery. He offers no other complaints. Denies any recent infection, illness and is accompanied by his , who is present at the time of interview. Last ischemic evaluation according to the patient he has never undergone stress test in the past. Last ECG, I spoke to his primary provider, Marie Bustamante, who states that the patient had an ECG in 2018. There was no ventricular ectopy noted at that time. PAST MEDICAL HISTORY: 1. Squamous cell carcinoma. 2. Hypothyroidism. 3. Hyperlipidemia. 4. Arthritis. 5. Head and neck cancer, underwent radiation for 2 weeks, has been in remission since October of 2017. 6. Anxiety. PAST SURGICAL HISTORY: 1. Partial thyroidectomy. 2. Ankle surgery, 04/21/19. 3. Left knee replacement. 4. Appendectomy. 5. Surgery for reconstruction of left jaw. HOME MEDICATIONS: According to admission med rec: 1. Lipitor 10 mg a day. 2. Levothyroxine 50 mcg a day. Please note the patient is not on aspirin therapy. He was on aspirin 325 mg from 04/21/29 to 06/19/19, but is no longer on it. FAMILY HISTORY: Noncontributory. SOCIAL HISTORY: The patient is . Lives at home with his , who is at his bedside. Former tobacco user. Consumes 2 gin and tonics a night. He and his both engage in a happy hour I am told. Denies illegal drug use. Consumes 2 to 3 cups of caffeinated coffee a day. In regards to activity, he has recently been sedentary and wheelchair bound; however, he has started to use a walker for ambulation 2 weeks ago. REVIEW OF SYSTEMS: All systems have been reviewed and are otherwise negative except what was above mentioned in HPI. PHYSICAL EXAMINATION: Vital Signs: Temperature 98, pulse 76, respirations 16, oxygenation 99 on room air, blood pressure 158/74. General: The patient is lying upright in bed. Appears in no apparent distress. He is cooperative with examination. He is alert and oriented x3, well nourished. HEENT: Head is atraumatic, normocephalic. Oral mucosa is moist. Tongue is midline. Neck: Supple. Trachea midline. No JVD. No carotid bruits. Cardiac: Diminished S1 , S2. Regular rate and rhythm. No murmur, rub or gallop noted. Lungs: Auscultated posteriorly, no adventitious breath sounds, otherwise respirations are nonlabored. /GI: Abdomen is soft, nontender, nondistended. Normoactive bowel sounds x4. Peripheral Vascular: 2+ right dorsalis pedis pulse palpated. 1+ left dorsalis pedis pulse palpated. Extremities: Trace pretibial edema noted bilaterally, otherwise no clubbing , no cyanosis. DIAGNOSTIC STUDIES/LAB DATA: Blood work from 06/29/19, white count 6.2, hemoglobin 13.9, hematocrit 39, platelets 102. Sodium 136, potassium 4.4, creatinine 1.17, magnesium 1.8, total bilirubin 1.2, TSH 2.74. Troponin #1, 0.01. ECG: Sinus rhythm, rate 81 with ventricular bigemini. No ST-segment changes appreciated. Brain CT 04/30/19, per Radiology report; normal CT of brain. No evidence of intracranial hemorrhage. Echocardiogram pending. ASSESSMENT AND PLAN: 1. Complaints of bradycardia. The patient states he was obtaining pulse in the high 30s and low 40s. He denies dizziness, lightheadedness, palpitations or sensation of forceful heart beat. He has noted increased loss of balance since ankle surgery, but again denies dizziness, syncope or lightheadedness. He has been in sinus rhythm rate 60 to 80s on telemetry with frequent ventricular ectopy at times and ventricular bigemini. I did personally speak to his primary care provider Marie Bustamante, who states his most recent ECG was in 2018, he was in sinus rhythm with no ventricular ectopy. He certainly has coronary risk factors including known atherosclerosis, hyperlipidemia and former tobacco use. Thus, he will need an eventual outpatient Lexiscan nuclear stress test (the patient unable to exercise due to recent ankle surgery). Troponin was normal x1. No ischemic EKG changes. At this time, we will start Lopressor 12.5 mg p.o. b.i.d. and monitor on telemetry. If echocardiogram does not reveal any structural heart changes, again would recommend outpatient ischemic evaluation and continuing Lopressor 12.5 mg p.o. b.i.d.. Recommend keeping K greater than 4, mag greater than 2. I did educate both the patient and the importance of alcohol avoidance in addition to caffeine avoidance. It may be reasonable to do an outpatient overnight sleep study given the patient does have episodes where he snores and had reconstruction surgery for head and neck cancer. We will follow post echocardiogram. 2. History of hyperlipidemia, on Lipitor 10 mg a day. Goal LDL is less than 70 given known atherosclerosis per patient. 3. Hypomagnesium. Mag 1.8 was replaced. Recommend keeping mag greater than 2. 4. History of head and neck cancer, in remission. Received radiation for 2 weeks in October 2017. Denies chemotherapy treatment. 5. Disposition, pending course. We will await echocardiogram. If no evidence of structural heart changes, we will recommend considering Lopressor 12.5 mg p.o. b.i.d., alcohol and caffeine avoidance and follow up within 2 weeks for outpatient Lexiscan nuclear stress test and reassessment of ventricular ectopy. Dr. Sheng Multani has personally seen and examined the patient and agrees with the above assessment and plan. JANET WHITMAN, LOAN FUNDER [id number]/[facility] #: [id number] ROBERT
--- NOTE | 2019-06-30 22:44 | DS ---
CC: ELLA Hubbard; Dr. Sheng Multani * DISCHARGE SUMMARY: DATE OF ADMISSION: 06/29/19 DATE OF DISCHARGE: 06/30/19 PRIMARY CARE PROVIDER: ELLA Hubbard. FINAL DISCHARGE DIAGNOSIS: Bradycardia secondary to bigeminy. ADDITIONAL DISCHARGE DIAGNOSES: 1. Hypothyroidism, status post partial thyroidectomy. 2. Hyperlipidemia. 3. Arthritis. 4. Right lower ankle fracture. HOSPITAL COURSE: The patient presented to [facility] after he was noted to have a low heart rate at his outpatient oncologist's office. He was advised to follow up with his primary. The patient called his daughter who is a nurse practitioner who advised him to go to the urgent care. When he arrived at urgent care, he was referred back to the emergency room for abnormal heart rhythm. On arrival to the emergency room, the patient states that he was monitoring his pulse at home since his oncologist's office and his pulse was as low as mid 30s using the wrist blood pressure cuff. In the emergency room, his EKG showed ventricular bigeminy and was admitted to the medical service, and cardiology consultation was obtained with Dr. Pathak overnight. He recommended transthoracic echocardiogram, monitor electrolyte, and rule out ACS. He was maintained on the monitor. Troponin was obtained, initially was 0.01. No further trop. He was seen by Cardiology today and was seen by Janet Whitman and Dr. Multani who evaluated the patient and from their perspective and point of view, they recommended to start metoprolol 12.5 b.i.d. and arrange for outpatient Lexiscan given his ankle fracture. The patient was seen and evaluated by me on his manual pulse. He had a pulse of 70. Occasional PVCs alternating with bigeminy rhythm. Asymptomatic, and clearly denied any symptoms even from admission. At this time, given he is symptom free, reassurance from cardiology consultation, I agree with outpatient followup, is deemed appropriate. Therefore, I provided him prescription for metoprolol 12.5 b.i.d. and I requested followup appointment with Dr. Multani, which was already put in order by Cardiology themselves and he has an appointment with Janet Whitman on 07/08/19 at 2:45 p.m. DISCHARGE PHYSICAL EXAM: Temperature 98.5, pulse 63, respiratory rate 14, satting 96, blood pressure 142/86. General: He is awake, alert, oriented, pleasant, in no distress. He does have a postop boot in the right lower extremity of pressure boot. Lungs: Good air flow bilateral. Cardiovascular: S1, S2. Irregularly irregular. Abdomen: Soft, nontender, nondistended. Extremities: No pedal edema. DISCHARGE MEDICATIONS: 1. Aspirin 81 mg daily. 2. Continue Lipitor 10 daily. 3. Levoxyl 50 mcg daily. 4. Lopressor 12.5 b.i.d. DIAGNOSTIC STUDIES: CBC unremarkable with hemoglobin 13, hematocrit 39. Chemistry unremarkable, potassium 4.4, mag 1.8, was supplemented 2 g IV on admission. DISCHARGE RECOMMENDATION: Follow up with primary care and follow up with Cardiology as scheduled. DISCHARGE DISPOSITION: Home. DISCHARGE CONDITION: Stable. [id number] #: [id number]
== END 2019-06-30 15:30 | disposition home or self-care (01) ==
LOC: ED 12:49 → MEDTELE 15:18
PROVIDERS: ADMIT Internal Medicine; ATTEND Internal Medicine
DX: R00.1 Bradycardia, unspecified (principal); R00.8 Other abnormalities of heart beat; E89.0 Postprocedural hypothyroidism; Z90.89 Acquired absence of other organs; E78.5 Hyperlipidemia, unspecified; M19.90 Unspecified osteoarthritis, unspecified site; S82.891D Other fracture of right lower leg, subsequent encounter for closed fracture with routine healing; X58.XXXD Exposure to other specified factors, subsequent encounter; Z79.82 Long term (current) use of aspirin; Z79.899 Other long term (current) drug therapy; Z85.89 Personal history of malignant neoplasm of other organs and systems; Z88.0 Allergy status to penicillin; Z79.890 Hormone replacement therapy; Z87.891 Personal history of nicotine dependence; Z86.79 Personal history of other diseases of the circulatory system; Z87.442 Personal history of urinary calculi; Z98.890 Other specified postprocedural states
CPT/HCPCS: 36415; 70450; 80053; 83735; 84439; 84443; 84484; 85025; 86803; 93005; 93306; 96365; 96372; 99284; A9270-GY; G0378; J1644; J3475